=== PATIENT | female | born 1945 | race Caucasian/White ===

== ENCOUNTER 2020-02-18 07:55 | Emergency (ER) | payer OTHER ==
[~2020-02-18] VITALS: Ht 177.8 cm; Wt 54.4 kg
[2020-02-18] MEDS ORDERED: NORCO 5-325 TA1 EAC2 PO (09:42)
[2020-02-18] MEDS ORDERED: FLEXERIL PO (09:42)
[2020-02-18 10:10] VITALS: BP 142/78
== END 2020-02-18 10:10 | disposition home or self-care (01) ==
LOC: M.ERS 07:55
DX: M54.5 Low back pain (principal); Z88.0 Allergy status to penicillin; Z88.2 Allergy status to sulfonamides; W01.0XXA Fall on same level from slipping, tripping and stumbling without subsequent striking against object, initial encounter; Y93.89 Activity, other specified; Y92.89 Other specified places as the place of occurrence of the external cause; Y99.8 Other external cause status